=== PATIENT | female | born 1980 | race Caucasian/White ===

== ENCOUNTER 2024-09-10 22:10 | Emergency (ER) | payer OTHER, SELFPAY ==
--- OUTSIDE RECORDS SUMMARY | 2024-09-10 22:13 | XMS_ITS | Encounter Summary ---
Author Organization [facility] Address [address] [place] [address]. [place] [address] Care Team Providers Care Capacity Planning Engineer Name Role Phone Lawanda Frey MD Primary Care Provider [phone] Kaylee Carrasco LABORER BITUMINOUS PAVING AUTO ELECTRICIAN Primary Care Provi juma No Ref-Primary, Physician Primary Care Provider Sara Funk LABORER BITUMINOUS PAVING AUTO ELECTRICIAN Unavailable Sara Funk LABORER BITUMINOUS PAVING AUTO ELECTRICIAN Unavailable Ivonne Berger MD Unavailable [phone] Josh Tenorio MD Unavailable [phone] Gela Samuel MD Unavailable Cris Grace MD Unavailable Cris Grace MD Primary Care Provider [phone] Encounter Details Date Type Department Care Team (Late st Contact Info) Description 07/28/2007 [facility] [address] [place] [address] Haseeb Watkins MD NO INFO AVAILABLE 03/04/2022 DELIVERY PATHWAY (Primary Dx) Social History Tobacco Use Types Packs/Day Years Used Date Smoking Tobacco: Former Cigarettes 0.1 1.5 0 03/14/2023 - 04/21/2011 Smokeless Tobacco: Never Comments:4-5 cigarettes per day Alcohol Use Standard Drinks/Week Comments Yes 0 (1 standard drink = 0.6 oz pur e alcohol) 5 per week maybe Comments No Sex and Gender Information Value Date Recorded Sex Assigned at Female 11/16/2022 4:36 PM CDT 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 Gender Identity Female 11/16/2022 4:36 PM CDT Sexual Orientation Straight 11/16/2022 4: 36 PM CDT documented as of this encounter Plan of Treatment Not on file documented as of this encounter Visit Diagnoses Diagnosis DELIVERY PATHWAY- Primary documented in this encounter Additional Health Concerns Infection Onset Date Last Indicated Resolved Time Rule Out C-difficile 07/19/2022 07/28/2022 023 11:41 PM CDT documented as of this encounter Care Teams Capacity Planning Engineer Relationship Specialty Start Date End Date Lawanda Frey MD PCP - General 08/25/06 09/08/14 Kaylee Carrasco APRN AUTO ELECTRICIAN PCP - General Nurse Practitioner - Family 09/09/14 11/02/15 No Ref-Primary, Physician PCP - General 08/31/17 06/13/22 Sara Funk APRN AUTO ELECTRICIAN [id number] [place] [address] PCP - Assigned PCP 07/20/15 05/06/18 [place] [id number] [place] [address] PCP - General Family Medicine 06/14/22 Sara Funk APRN AUTO ELECTRICIAN [address] [place] [address] Assigned PCP 07/20/15 05/06/18 [place] [address] [place] [address] Assigned PCP 10/22/18 07/25/21 Josh Tenorio MD [address] [address] Assigned OBGYN Provider 01/04/20 Gela Samuel MD [address] [place] [address] Assigned PCP 07/26/21 01/15/22 [place] [id number] [place] [address] Assigned PCP 01/16/22 documented as of this encounter
--- OUTSIDE RECORDS SUMMARY | 2024-09-10 22:13 | XMS_ITS | Encounter Summary ---
Author Organization [facility] Address [address] [place] [address]. [place] [address] Care Team Providers Care Marketing Manager Health Communications Name Role Phone Lawanda Frey MD Primary Care Provider [phone] Kaylee Carrasco PEDIATRIC IMMUNOLOGIST AUTO CLUTCH REBUILDER Primary Care Provi juma No Ref-Primary, Physician Primary Care Provider Sara Funk PEDIATRIC IMMUNOLOGIST AUTO CLUTCH REBUILDER Unavailable Sara Funk PEDIATRIC IMMUNOLOGIST AUTO CLUTCH REBUILDER Unavailable Ivonne Berger MD Unavailable [phone] Josh Tenorio MD Unavailable [phone] Gela Samuel MD Unavailable Cris Grace MD Unavailable Cris Grace MD Primary Care Provider [phone] Encounter Details Date Type Department Care Team (Late st Contact Info) Description 03/29/2011 [facility] [id number] [place] [id number] Lawanda Frey MD [address] [place] [id number] Social History Tobacco Use Types Packs/Day Years Used Date Smoking Tobacco: Every Day Cigarettes Last attempted to quit: 03/29/2007 Smokeless Tobacco: Never Comments:4-5 cigarettes per day Alcohol Use Standard Drinks/Week Comments Yes 0 (1 standard drink = 0.6 oz pur e alcohol) effective 12/12/06, socially Comments No Sex and Gender Information Value Date Recorded Sex Assigned at Female 11/16/2022 4:36 PM CDT 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 Gender Identity Female 11/16/2022 4:36 PM CDT Sexual Orientation Straight 11/16/2022 4: 36 PM CDT documented as of this encounter Plan of Treatment Not on file documented as of this encounter Visit Diagnoses Not on filedocumented in this encounter Additional Health Concerns Infection Onset Date Last Indicated Resolved Time Rule Out C-difficile 07/19/2022 07/28/2022 023 11:41 PM CDT documented as of this encounter Care Teams Marketing Manager Health Communications Relationship Specialty Start Date End Date Lawanda Frey MD PCP - General 08/25/06 09/08/14 Kaylee Carrasco APRN AUTO CLUTCH REBUILDER PCP - General Nurse Practitioner - Family 09/09/14 11/02/15 No Ref-Primary, Physician PCP - General 08/31/17 06/13/22 Sara Funk APRN AUTO CLUTCH REBUILDER [address] [place] [address] PCP - Assigned PCP 07/20/15 05/06/18 [place] [address] [address] [address] PCP - General Family Medicine 06/14/22 Sara Funk APRN AUTO CLUTCH REBUILDER [address] [place] [address] Assigned PCP 07/20/15 05/06/18 [place] [address] [place] [address] Assigned PCP 10/22/18 07/25/21 Josh Tenorio MD [address] [address] Assigned OBGYN Provider 01/04/20 Gela Samuel MD [address] [place] [address] Assigned PCP 07/26/21 01/15/22 [place] [address] [place] [address] Assigned PCP 01/16/22 documented as of this encounter
--- OUTSIDE RECORDS SUMMARY | 2024-09-10 22:13 | XMS_ITS | Clinical Summary ---
Author Organization [place] Address [address] [facility] [place] [address] Care Team Providers Care Supervisor [employer] Name Role Phone Cris Grace MD Unavailable Cris Grace MD Primary Care Provider [phone] Allergies Active Allergy Reactions Criticality Noted Date Comments Cats 03/28/2006 Cat gut. Used in stitches. Medications Multiple Vitamin (MULTIVITAMIN) per tablet Take 1 tablet by mouth daily. 0 Active ibuprofen (ADVIL,MOTRIN) 200 MG tablet Take 3 tablets by mouth every 8 hours as needed for pain. 1 tablet 0 2 Active progesterone (PROMETRIUM) 100 MG capsule Take 100 mg by mouth daily 2 Active fluconazole (DIFLUCAN) 150 MG tabletIndication s:Tinea versicolor Take 2 tablets (300 mg) by mouth every 14 days - for two doses 4 tablet 1 3 Active ketoconazole (NIZORAL) 2 % external shampooIndicatio ns:Tinea versicolor Apply topically daily as needed for itching or irritation 120 mL 1 3 Active triamcinolone (KENALOG) 0.1 % external ointmentIndicati ons:Dermatitis APPLY TO AFFECTED AREA TWICE A DAY 80 g 1 5 Active clindamycin (CLEOCIN T) 1 % SWABIndications: Rosacea Apply 1 applicator topically 2 times daily. 180 each 2 5 Active fluticasone (FLONASE) 50 MCG/ACT nasal sprayIndications :Seasonal allergic rhinitis due to pollen [place] 1 spray into both nostrils daily. 16 g 11 5 Active fluconazole (DIFLUCAN) 150 MG tablet Take 2 tablets (300 mg) by mouth every 14 days. - for two doses 4 tablet 5 Active spironolactone (ALDACTONE) 50 MG tabletIndication s:Acne, unspecified acne type Take 1 tablet (50 mg) by mouth daily. 90 tablet 3 5 Active Active Problems Problem Noted Date Diagnosed Date CARDIOVASCULAR SCREENING; LDL GOAL LESS THAN 160 01/11/2010 Acne 11/06/2009 Overview (11/06/2009): Seeing dr. fierro Resolved Problems Problem Noted Date Diagnosed Date Resolved Date Heavy periods 11/10/2018 11/10/2018 High risk HPV infection 11/03/201510/14 Dysplasia of cervix, low grade (MIGUEL 1) 09/05/2015 11/10/2018 Overview (12/28/2022): 09/05/15: LSIL/ +HR HPV (not 16 or 18). Plan Barclay 10/27/15 Barclay= MIGUEL 1. Plan co-test 6 months, due 04/201608/25/16 NIL pap/+ HR HPV (not 16 or 18). Plan: colposcopy 10/26/16 Barclay--mild atypia. Plan: co-test in 1 year. 08/31/17 NIL pap, neg HR HPV. Plan 3 year cotest 01/11/22 NIL, +HR HPV, not 16/18. Plan 1 yr co-test 12/21/22 NIL, Neg HPV. Plan 3 yr co-test Papanicolaou smear of cervix with low grade squamous intraepithelial lesion (LGSIL) 09/05/2015 11/10/2018 Overview (11/10/2018): + HR HPV other Cervical high risk HPV ([place] n papillomavirus) test positive 09/05/2015 11/10/2018 Overview (11/10/2018): (Not 16 or 18) Weight loss, non-intentional 06/24/2010 06/14/2022 Supervision of other high-risk 04/06/2007 09/19/2007 Overview (12/13/2014): Elevated HCG on quad screen; results d/w Dr. Newman. Recommend monthly growth scans, biweekly BP, urine dipstick, and weight from 20-30 wks ega, weekly follow-ups with BPP from 30 wks ega, and delivery at approximaely 39 wks or as clinically indicated. Suggestion of baseline labs also made. Quad result and recommendation discussed with patient who agrees with management plan. Problem list name updated by automated process. Provider to review Supervision of normal first 03/29/2007 05/03/2007 Personal history of contrace ption, presenting hazards to health 09/19/2007 Tobacco use disorder 014 Immunizations Immunization Administration Dates Next Due Influenza (IIV3) PF 12/26/2012,01/05/2010 [place] Tuberculin Skin Test 06/13/2007 TD,PF 7+ (Tenivac) 08/12/2006 TDAP Vaccine (Adacel) 10/26/2016,08/25/200608/12 Family History Medical History Relation Comments Family History Negative Brother 2 1 Heart Disease Father heart attack onc e-at age of 52-may be mild heart attacks prior to that Cardiovascular Maternal Grandfather heart attac k Cancer Maternal Grandmother ovarian dx approx age 70 Other Cancer Maternal Grandmother Ovarian can cer Ovarian Cancer Maternal Grandmother Family History Negative Mother Cancer Paternal Grandfather prostate ca -recently diagnosed; history of pulmonary embolism Cancer Paternal Grandmother ovarian (po ssible) and heart attack age 76 at dx Cerebrovascular Disease Paternal Grandmother Other Cancer Paternal Grandmother Cervical ca ncer Ovarian Cancer Paternal Grandmother Breast Cancer No family hx of Cancer - colorectal No family hx of Colon Cancer No family hx of Relation Status Comments Brother 1 Alive Brother 2 Father Alive Maternal Grandfather Maternal Grandmother Mother Alive Paternal Grandfather Alive Paternal Grandmother Social History Tobacco Use Types Packs/Day Years Used Date Smoking Tobacco: Former Cigarettes 0.1 1.5 0 03/14/2023 - 04/21/2011 Smokeless Tobacco: Never Tobacco Cessation:Counseling Given: Not Answered Comments:4-5 cigarettes per day Alcohol Use Standard Drinks/Week Comments Yes 0 (1 standard drink = 0.6 oz pur e alcohol) 5 per week maybe Social Connection and Isolation Panel [NHANES] A nswer Date Recorded Frequency of Communication with Friends and Fami ly Not on file 05/04/2024 How often do you get togethe r with friends or relatives? Three times a week 05/04/2024 Attends [employer] Services Not on file 05/04 Active Member of Clubs or Organizations Not on f ile 05/04/2024 Attends Club or Organization Meetings Not on jaycob e 05/04/2024 Marital Status Not on file 05/04/2024 AUDIT-C Answer Date Recorded Q1: How often do you have a drink containing alc ohol? 2-3 times a week 01/11/2022 Q2: How many drinks containi ng alcohol do you have on a typical day when you are drinking? 1 or 2 01/11/2022 Q3: How often do you have si x or more drinks on one occasion? Never 01/11/2022 PHQ-2 Answer Date Recorded PHQ-2 Score 1 05/04/2024 [facility] - Occupational Stress Questionnaire Answer Date Recorded Do you feel stress - tense, restless, nervous, or anxious, or unable to sleep at night because your mind is troubled all the time - these days? To some extent 05/04/2024 Exercise Vital Sign Answer Date Recorde d On average, how many days pe r week do you engage in moderate to strenuous exercise (like a brisk walk)? 4 days 05/04/2024 On average, how many minutes do you engage in exercise at this level? 40 min 05/04/2024 Adolescent Education Answer Date Record ed Getting School Help Needed Not on file 12/13 Food Insecurity Answer Date Recorded Within the past 12 months, d id you worry that your food would run out before you got money to buy more? No 05/04/2024 Within the past 12 months, d id the food you bought just not last and you didn t have money to get more? No 05/04/2024 Housing Stability Answer Date Recorded Do you have housing? (Debbie lerma is defined as stable permanent housing and does not include staying outside in a car, in a tent, in an abandoned building, in an overnight halfway, or couch-surfing.) Yes 05/04/2024 Are you worried about losing your housing? No 05/04/2024 Financial Resource Strain Answer Date R ecorded Within the past 12 months, h ave you or your family members you live with been unable to get utilities (heat, electricity) when it was really needed? No 05/04/2024 Transportation Needs Answer Date Record ed Within the past 12 months, h as lack of transportation kept you from medical appointments, getting your medicines, non-medical meetings or appointments, work, or from getting things that you need? No 05/04/2024 Interpersonal Safety Answer Date Record ed Do you feel physically and e motionally safe where you currently live? Yes 05/04/2024 Within the past 12 months, h ave you been hit, slapped, kicked or otherwise physically hurt by someone? No 05/04/2024 Within the past 12 months, h ave you been humiliated or emotionally abused in other ways by your partner or ex-partner? No 05/04/2024 Comments No Sex and Gender Information Value Date Recorded Sex Assigned at Female 11/16/2022 4:36 PM CDT Legal Sex Female 2:58 AM SPECIAL EDUCATION PARAEDUCATOR Gender Identity Female 11/16/2022 4:36 PM CDT Sexual Orientation Straight 11/16/2022 4: 36 PM CDT Last Filed Vital Signs Vital Sign Reading Time Taken Comments Blood Pressure 94/64 05/04/2024 7:35 AM SPECIAL EDUCATION PARAEDUCATOR Pulse 82 05/04/2024 7:35 AM SPECIAL EDUCATION PARAEDUCATOR Temperature 36.9 C (98.5 F) 05/04/2024 7:35 AM SPECIAL EDUCATION PARAEDUCATOR Respiratory Rate 20 05/04/2024 7:35 AM SPECIAL EDUCATION PARAEDUCATOR Oxygen Saturation 98% 05/04/2024 7:35 AM SPECIAL EDUCATION PARAEDUCATOR Inhaled Oxygen Concentration - - Weight 62.2 kg (137 lb 3.2 oz) 05/04/2024 7:35 A M SPECIAL EDUCATION PARAEDUCATOR Height 163.2 cm (5' 4.25) 05/04/2024 7:35 AM CS T Body Mass Index 23.37 05/04/2024 7:35 AM SPECIAL EDUCATION PARAEDUCATOR Plan of Treatment Health Maintenance Due Date Last Done Comments CT COLONOGRAPHY 1980 FLEX SIG 1980 sDNA (Cologuard) 1980 HEPATITIS B VACCINE (1 of 3 - 19+ 3-dose series) 1998 FIT 06/15/2023 06/14/2022 COVID-19 VACCINE ( season) 2023 ANNUAL REVIEW OF HM ORDERS 12/22/2023 12/21/2022, INFLUENZA VACCINE (Season Ended) 2024 12/26/2012, 01/05/2010 YEARLY PREVENTIVE VISIT 05/04/2025 05/04/19, 12/21/2022, 01/11/2022, Additional history exists HPV FOLLOW-UP 12/21/2025 12/21/2022, 12/14, 08/31/2017, Additional history exists PAP FOLLOW-UP 12/21/2025 12/21/2022, 12/14, 08/31/2017, Additional history exists MAMMO SCREENING 05/28/2026 05/28/2024, 11/14, 11/15/2018 DTAP/TDAP/TD VACCINE (3 - Td or Tdap) 10/26/2026 10/26/2016, 08/25/2006, 08/12/2006 DIABETES SCREENING 05/10/2027 05/10/2024, 1 , 01/11/2022, Additional history exists ZOSTER VACCINE (1 of 2) 2029 ADVANCE CARE PLANNING 05/04/2029 05/04/2024, 022 LIPID 05/10/2029 05/10/2024, 12/12, 01/11/2022, Additional history exists COLONOSCOPY 08/02/2032 08/02/2022, 08/02/2022 COLORECTAL CANCER SCREENING 08/02/2032 HIV SCREENING Completed 01/24/2007 HEPATITIS C SCREENING Completed 01/01/2010 PAP Discontinued 12/21/2022, 12/14, 08/31/2017, Additional history exists PHQ-2 (once per calendar year) Completed 05/04/2024, 06/14/2022, 01/11/2022, Additional history exists HPV VACCINE Aged Out No longer eligi ble based on patient's age to complete this topic MENINGITIS VACCINE Aged Out No longer eligible based on patient's age to complete this topic PNEUMOCOCCAL VACCINE: PEDIATRICS (0 to 5 YEARS) AND AT-RISK PATIENTS (6 to 49 YEARS) Aged Out No longer eligible based on patient's age to complete this topic Procedures Procedure Name Priority Date/Time Associated Diagnosis Comments MA SCREENING WITH IMPLANTS BILATERAL W/ VICENTE Routine 05/28/2024 4:31 PM CDT Encounter for screening mammogram for breast cancer BASIC METABOLIC PANEL Routine 05/10/2024 8:27 AM SPECIAL EDUCATION PARAEDUCATOR Screening for metabolic disorder LIPID REFLEX TO DIRECT LDL PANEL Routine 05/10/2024 8:27 AM SPECIAL EDUCATION PARAEDUCATOR Lipid screening HPV HIGH RISK TYPES DNA CERVICAL Routine 12/21/2022 8:15 AM CDT Cervical cancer screening GYNECOLOGIC CYTOLOGY Routine 12/21/2022 8:15 AM CDT Cervical cancer screening COLONOSCOPY Routine 08/02/2022 9:05 AM CDT FECAL COLORECTAL CANCER SCREEN FIT Routine 06/14/2022 12:00 PM CDT Blood in stool HEPATITIS C ANTIBODY Routine 01/01/2010 12:28 PM CDT Prothrombin gene mutation HCL HIV 1 & 2 ANTIBODY Routine 01/24/2007 11:44 AM SPECIAL EDUCATION PARAEDUCATOR Supervis Normal 1st Preg from Last 3 Months or Most Recently Relevant to Health Maintenance Results * MA Screen with Implants Bilateral w/Vicente (05/28/2024 4:31 PM CDT) Anatomical Region Laterality Modality Breast Bilateral Mammography Impressions 05/29/2024 8:47 AM CDT IMPRESSION: ACR BI-RADS Category 2: Benign BREAST CANCER SCREENING RECOMMENDATION: Routine yearly mammography beginning at age 40 or as discussed with your provider. The results and recommendations of this examination will be communicated to the patient. Anushka Thompson MD Narrative 05/29/2024 8:47 AM CDT BILATERAL FULL FIELD DIGITAL SCREENING MAMMOGRAM WITH TOMOSYNTHESIS Performed on: 05/28/24 Compared to: 12/11/2021, 11/15/2018, and 11/15/2018 Technique: This study was evaluated with the assistance of Computer-Aided Detection. Breast Tomosynthesis was used in interpretation. Findings: There are scattered areas of fibroglandular density. There are breast augmentation changes. There is no radiographic evidence of malignancy. us Cris Grace MD IMG MAMMOGRAPHY ORDERABLES Final Result * (ABNORMAL) Lipid panel reflex to direct LDL Fasting (05/10/2024 8:27 AM SPECIAL EDUCATION PARAEDUCATOR) Cholesterol 214(H) <200 mg/dL 05/10/2024 4:54 PM SPECIAL EDUCATION PARAEDUCATOR [facility] Triglycerides 62 <150 mg/dL 05/10/2024 4:54 PM SPECIAL EDUCATION PARAEDUCATOR [facility] Direct Measure HDL 82 >=50 mg/dL 05/10/2024 4:54 PM SPECIAL EDUCATION PARAEDUCATOR [facility] LDL Cholesterol Calculated 120(H) <100 mg/dL 05/10/2024 4:54 PM SPECIAL EDUCATION PARAEDUCATOR [facility] Non HDL Cholesterol 132(H) <130 mg/dL 05/10/2024 4:54 PM SPECIAL EDUCATION PARAEDUCATOR [facility] Patient Fasting > 8hrs? Yes 05/10/2024 4:54 PM SPECIAL EDUCATION PARAEDUCATOR [facility] Blood BLOOD SPECIMEN / Unknown Venipuncture / Unknown 05/10/2024 8:27 AM SPECIAL EDUCATION PARAEDUCATOR 05/10/2024 8:27 AM SPECIAL EDUCATION PARAEDUCATOR Narrative [facility] - 05/10/2024 4:54 PM SPECIAL EDUCATION PARAEDUCATOR Cholesterol Desirable: < 200 mg/dL Borderline High: 200 - 239 mg/dL High: >= 240 mg/dL Triglycerides Normal: < 150 mg/dL Borderline High: 150 - 199 mg/dL High: 200-499 mg/dL Very High: >= 500 mg/dL Direct Measure HDL Female: >= 50 mg/dL Male: >= 40 mg/dL LDL Cholesterol Desirable: < 100 mg/dL Above Desirable: 100 - 129 mg/dL Borderline High: 130 - 159 mg/dL High: 160 - 189 mg/dL Very High: >= 190 mg/dL Non HDL Cholesterol Desirable: < 130 mg/dL Above Desirable: 130 - 159 mg/dL Borderline High: 160 - 189 mg/dL High: 190 - 219 mg/dL Very High: >= 220 mg/dL Cris Grace MD LAB - BLOOD ORDERABLES Final Res ult [facility] [address] [facility], [address] [place] [address] * Basic metabolic panel (Ca, Cl, CO2, Creat, Gluc, K, Na, BUN) (05/10/2024 8:27 AM SPECIAL EDUCATION PARAEDUCATOR) Sodium 142 135 - 145 mmol/L 05/10/2024 4:54 PM SPECIAL EDUCATION PARAEDUCATOR [facility] Potassium 4.5 3.4 - 5.3 mmol/L 05/10/2024 4:54 PM SPECIAL EDUCATION PARAEDUCATOR [facility] Chloride 104 98 - 107 mmol/L 05/10/2024 4:54 PM SPECIAL EDUCATION PARAEDUCATOR [facility] Carbon Dioxide (CO2) 27 22 - 29 mmol/L 05/10/2024 4:54 PM SPECIAL EDUCATION PARAEDUCATOR [facility] Anion Gap 11 7 - 15 mmol/L 05/10/2024 4:54 PM SPECIAL EDUCATION PARAEDUCATOR [facility] Urea Nitrogen 11.6 6.0 - 20.0 mg/dL 05/10/2024 4:54 PM SPECIAL EDUCATION PARAEDUCATOR [facility] Creatinine 0.74 0.51 - 0.95 mg/dL 05/10/2024 4:54 PM SPECIAL EDUCATION PARAEDUCATOR [facility] GFR Estimate >90 >60 mL/min/1.7 3m2 05/10/2024 4:54 PM SPECIAL EDUCATION PARAEDUCATOR [facility] Comment:eGFR calculated us2020 CKD-EPI equation. Calcium 10.2 8.8 - 10.4 mg/dL 05/10/2024 4:54 PM SPECIAL EDUCATION PARAEDUCATOR [facility] Glucose 88 70 - 99 mg/dL 05/10/2024 4:54 PM SPECIAL EDUCATION PARAEDUCATOR [facility] Patient Fasting > 8hrs? Yes 05/10/2024 4:54 PM SPECIAL EDUCATION PARAEDUCATOR [facility] Blood BLOOD SPECIMEN / Unknown Venipuncture / Unknown 05/10/2024 8:27 AM SPECIAL EDUCATION PARAEDUCATOR 05/10/2024 8:27 AM SPECIAL EDUCATION PARAEDUCATOR us Cris Grace MD LAB - BLOOD ORDERABLES Final Res ult [facility] [address] [facility] [address] [facility] [place] [address], [facility] * Pap Screen with HPV - recommended age 30 - 65 years (12/21/2022 8:15 AM CDT) Interpretation Negative for Intraepithelial Lesion or Malignancy (NILM) 12/23/2022 9:29 AM CDT [facility] at 0929 CDT Comment Papanicolaou Test Limitations: Cervical cytology is a screening test with limited sensitivity, and regular screening is critical for cancer prevention. Pap tests are primarily effective for the diagnosis/prevent ion of squamous cell carcinoma, not adenocarcinoma or other cancers. 12/23/2022 9:29 AM CDT [facility] Specimen Adequacy Satisfactory for evaluation, endocervical/caal sformation zone component absent 12/23/2022 9:29 AM CDT [facility] Clinical Information none 12/23/2022 9:29 AM CDT [facility] Reflex Testing Yes regardless of result 12/23/2022 9:29 AM CDT [facility] Previous Abnormal? No 12/23/2022 9:29 AM CDT [facility] Performing Labs The technical component of this testing was completed at [facility] 12/23/2022 9:29 AM CDT [facility] Brushing CERVIX UTERI STRUCTURE / Unknown Non-blood Collection / Unknown 12/21/2022 8:15 AM CDT 12/21/2022 8:38 AM CDT us Cris Grace MD LAB - BEAKER AP Final Result [facility] [address] [facility] [address] [facility] [address] [place] [address], [facility] [phone] * HPV High Risk Types DNA Cervical (12/21/2022 8:15 AM CDT) Other HR HPV Negative Negative 12/27/2022 3:07 PM CDT [facility] HPV16 DNA Negative Negative 12/27/2022 3:07 PM CDT [facility] HPV18 DNA Negative Negative 12/27/2022 3:07 PM CDT [facility] FINAL DIAGNOSIS This patient's sample is negative for HPV DNA. This test was developed and its performance characteristics determined by the [facility], [facility]. It has not been cleared or approved by the FDA. The laboratory is regulated under CLIA as qualified to perform high-complexity testing. This test is used for clinical purposes. It should not be regarded as investigational or for research. METHODOLOGY: The Arun Swapnil 4800 system uses automated extraction, simultaneous amplification of HPV (L1 region) and beta-globin, followed by real time detection of fluorescent labeled HPV and beta globin using specific oligonucleotide probes. The test specifically identifies types HPV 16 DNA and HPV 18 DNA while concurrently detecting the rest of the high risk types (31, 33, 35, 39, 45, 51, 52, 56, 58, 59, 66 or 68). COMMENTS: This test is not intended for use as a screening device for woman under age 30 with normal cervical cytology. Results should be correlated with cytologic and histologic findings. Close clinical followup is recommended. 12/27/2022 3:07 PM CDT [facility] Brushing CERVIX UTERI STRUCTURE / Unknown Non-blood Collection / Unknown 12/21/2022 8:15 AM CDT 12/24/2022 10:43 AM CDT us Cris Grace MD LAB - BLOOD ORDERABLES Final Res ult [facility] [address], [address] [place] [address], [facility] [phone] * COLONOSCOPY (08/02/2022 9:05 AM CDT) COLONOSCOPY [facility] Patient Name: Deyanira Lopez Procedure Date: 08/02/2022 9:05 AM Date of : 1980 Admit Type: Outpatient Age: 42 Gender: Female Attending MD: ROBERT YOST MD, Total Sedation Time: 15 minutes of continuous bedside 1:1. IT: 3m, WDT: 8m Instrument Name: 250 - Pediatric Colonoscope Procedure: Colonoscopy Indications: Rectal bleeding Providers: ROBERT YOST MD (Doctor) Referring MD: SENAIT VELAZQUEZ NP (Referring MD) Medicines: Fentanyl 100 micrograms IV, Midazolam 2 mg IV Complications: No immediate complications. Procedure: Pre-Anesthesia Assessment: - Prior to the procedure, a History and Physical was performed, and patient medications and allergies were reviewed. The patient is competent. The risks and benefits of the procedure and the sedation options and risks were discussed with the patient. All questions were answered and informed consent was obtained. Patient identification and proposed procedure were verified by the physician and the nurse in the endoscopy suite. Mental Status Examination: alert and oriented. Airway Examination: normal oropharyngeal airway and neck mobility. Respiratory Examination: clear to auscultation. CV Examination: normal. Prophylactic Antibiotics: The patient does not require prophylactic antibiotics. Prior Anticoagulants: The patient has taken no anticoagulant or antiplatelet agents. ASA Grade Assessment: II - A patient with mild systemic disease. After reviewing the risks and benefits, the patient was deemed in satisfactory condition to undergo the procedure. The anesthesia plan was to use moderate sedation / analgesia (conscious sedation). Immediately prior to administration of medications, the patient was re-assessed for adequacy to receive sedatives. The heart rate, respiratory rate, oxygen saturations, blood pressure, adequacy of pulmonary ventilation, and response to care were monitored throughout the procedure. The physical status of the patient was re-assessed after the procedure. After obtaining informed consent, the colonoscope was passed under direct vision. Throughout the procedure, the patient's blood pressure, pulse, and oxygen saturations were monitored continuously. The Olympus Pediatric Colonoscope, Model # [id number], [employer] #250, SN# [id number] was introduced through the anus and advanced to 4 cm into the ileum. The colonoscopy was performed with ease. The patient tolerated the procedure well. The quality of the bowel preparation was good. The terminal ileum, ileocecal valve, appendiceal orifice, and rectum were photographed. Findings: The perianal and digital rectal examinations were normal. Pertinent negatives include normal sphincter tone and no palpable rectal lesions. The terminal ileum appeared normal. Normal mucosa was found in the entire colon. Biopsies for histology were taken with a cold forceps from the right colon and left colon for evaluation of microscopic colitis. Estimated blood loss was minimal. The retroflexed view of the distal rectum and anal verge was normal and showed no anal or rectal abnormalities. Impression: - The examined portion of the ileum was normal. - Normal mucosa in the entire examined colon. Biopsied. - The distal rectum and anal verge are normal on retroflexion view. Recommendation: - Repeat colonoscopy in 10 years for screening purposes. Procedure Code(s): --- Professional --- 24057, Colonoscopy, flexible; with biopsy, single or multiple Diagnosis Code(s): --- Professional --- K62.5, Hemorrhage of anus and rectum CPT copyright 2020 [employer]. All rights reserved. The codes documented in this report are preliminary and upon apprentice cook review may be revised to meet current compliance requirements. ____ ROBERT YOST MD 08/02/2022 9:34:45 AM I was physically present for the entire viewing portion of the exam. ROBERT YOST MD Number of Addenda: 0 Note Initiated On: 08/02/2022 9:05 AM Procedure Date: 08/02/2022 9:05:24 AM Scope Withdrawal Time: 0 hours 7 minutes 30 seconds Total Procedure Duration: 0 hours 10 minutes 26 seconds Estimated Blood Loss: Scope In: 9:17:56 AM Scope Out: 9:28:22 AM RADIOLOGY RESULTS 08/02/2022 9:05 AM CDT us Senait Velazquez APRN BROACH OPERATOR PROCEDURES Fin al Result RADIOLOGY RESULTS * (ABNORMAL) Fecal colorectal cancer screen (FIT) (06/14/2022 12:00 PM CDT) Occult Blood Screen FIT Positive(A ) Negative 06/14/2022 5:00 PM CDT [facility] Stool RECTAL CONTENTS / Unknown Non-blood Collection / Unknown 06/14/2022 12:00 PM CDT 06/14/2022 1:31 PM CDT us Senait Velazquez APRN, CNP LAB - STOOLS ORDERA BLES Final Result LABORATORY [facility] [address] [place] [address], [address] [address], [facility] [phone] * Hepatitis C antibody (01/01/2010 12:28 PM CDT) Hepatitis C Antibody Negative NEG [facility] Blood specimen (specimen) 01/01/2010 12:28 PM CDT 01/01/2010 12:33 PM CDT Marleni Duke MD LAB - BLOOD ORDERABLES F inal Result [facility] [address] [place] [address] * HIV 1 & 2, SCREEN (01/24/2007 11:44 AM SPECIAL EDUCATION PARAEDUCATOR) HIV 1&2 Antibody Negative NEG [facility] 01/24/2007 11:4 4 AM SPECIAL EDUCATION PARAEDUCATOR 01/24/2007 11:49 AM SPECIAL EDUCATION PARAEDUCATOR Marleni Duke MD LABORATORY Final Re sult [facility] [address] [place] [address] from Last 3 Months or Most Recently Relevant to Health Maintenance Insurance [facility] Care Teams Supervisor [employer] Relationship Specialty [place] [address] [place] [address] PCP - General Family Medicine 06/14/22 [place] [address] [place] [address] Assigned PCP 01/16/22
--- OUTSIDE RECORDS SUMMARY | 2024-09-10 22:13 | XMS_ITS | Encounter Summary ---
Author Organization [facility] Address [address] [place] [address]. [place] [address] Care Team Providers Care Recorder Helper Seismograph Name Role Phone Lawanda Frey MD Primary Care Provider [phone] Kaylee Carrasco HAND BUTTON SPLITTER RN POST PARTUM Primary Care Provi juma No Ref-Primary, Physician Primary Care Provider Sara Funk HAND BUTTON SPLITTER RN POST PARTUM Unavailable Sara Funk HAND BUTTON SPLITTER RN POST PARTUM Unavailable Ivonne Berger MD Unavailable [phone] Josh Tenorio MD Unavailable [phone] Gela Samuel MD Unavailable Cris Grace MD Unavailable Cris Grace MD Primary Care Provider [phone] Encounter Details Date Type Department Care Team (Late st Contact Info) Description 02/17/2011 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 Gender Identity Female 11/16/2022 4:36 PM CDT [...] documented as of this encounter Care Teams Recorder Helper Seismograph Relationship Specialty Start Date End Date Lawanda Frey MD PCP - General 08/25/06 09/08/14 Kaylee Carrasco APRN RN POST PARTUM PCP - General Nurse Practitioner - Family 09/09/14 11/02/15 No Ref-Primary, Physician PCP - General 08/31/17 06/13/22 Sara Funk APRN RN POST PARTUM [address] [place] [address] PCP - Assigned PCP 07/20/15 05/06/18 [place] [address] [address] [address] PCP - General Family Medicine 06/14/22 Sara Funk APRN RN POST PARTUM [address] [place] [address] Assigned PCP 07/20/15 05/06/18 [place] [address] [place] [address] Assigned PCP 10/22/18 07/25/21 Josh Tenorio MD [address] [address] Assigned OBGYN Provider 01/04/20 Gela Samuel MD [address] [place] [address] Assigned PCP 07/26/21 01/15/22 [place] [address] [place] [address] Assigned PCP 01/16/22 documented as of this encounter
--- OUTSIDE RECORDS SUMMARY | 2024-09-10 22:13 | XMS_ITS | Encounter Summary ---
Author Organization [facility] Address [address] [place] [address]. [place] [address] Care Team Providers Care Checkering Machine Adjuster Name Role Phone Lawanda Frey MD Primary Care Provider [phone] Kaylee Carrasco CLAIM APPROVER WEB PRODUCTION ARTIST Primary Care Provi juma No Ref-Primary, Physician Primary Care Provider Sara Funk CLAIM APPROVER WEB PRODUCTION ARTIST Unavailable Sara Funk CLAIM APPROVER WEB PRODUCTION ARTIST Unavailable Ivonne Berger MD Unavailable [phone] Josh Tenorio MD Unavailable [phone] Gela Samuel MD Unavailable Cris Grace MD Unavailable Cris Grace MD Primary Care Provider [phone] Encounter Details Date Type Department Care Team (Late st Contact Info) Description 10/05/2010 [facility] Medical Advice [facility] [address] [place] [address] [phone] Lawanda Frey MD [address] [place] [address] [phone] Social History Tobacco Use Types Packs/Day Years [...] PM CDT 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 Gender Identity Female 11/16/2022 4:36 PM CDT [...] documented as of this encounter Care Teams Checkering Machine Adjuster Relationship Specialty Start Date End Date Lawanda Frey MD PCP - General 08/25/06 09/08/14 Kaylee Carrasco APRN WEB PRODUCTION ARTIST PCP - General Nurse Practitioner - Family 09/09/14 11/02/15 No Ref-Primary, Physician PCP - General 08/31/17 06/13/22 Sara Funk APRN WEB PRODUCTION ARTIST [address] [place] [address] PCP - Assigned PCP 07/20/15 05/06/18 [place] [address] [address] [address] PCP - General Family Medicine 06/14/22 Sara Funk APRN WEB PRODUCTION ARTIST [address] [place] [address] Assigned PCP 07/20/15 05/06/18 [place] [address] [place] [address] Assigned PCP 10/22/18 07/25/21 Josh Tenorio MD [address] [address] Assigned OBGYN Provider 01/04/20 Gela Samuel MD [address] [place] [address] Assigned PCP 07/26/21 01/15/22 [place] [address] [place] [address] Assigned PCP 01/16/22 documented as of this encounter
--- OUTSIDE RECORDS SUMMARY | 2024-09-10 22:13 | XMS_ITS | Encounter Summary ---
Author Organization [facility] Address [address] [place] [address]. [place] [address] Care Team Providers Care Disposition Clerk Name Role Phone Lawanda Frey MD Primary Care Provider [phone] Kaylee Carrasco SAP FICO BUSINESS ANALYST KNUCKLE BENDER Primary Care Provi juma No Ref-Primary, Physician Primary Care Provider Sara Funk SAP FICO BUSINESS ANALYST KNUCKLE BENDER Unavailable Sara Funk SAP FICO BUSINESS ANALYST KNUCKLE BENDER Unavailable Ivonne Berger MD Unavailable [phone] Josh Tenorio MD Unavailable [phone] Gela Samuel MD Unavailable Cris Grace MD Unavailable Cris Grace MD Primary Care Provider [phone] Encounter Details Date Type Department Care Team (Late st Contact Info) Description 06/29/2010 MyC Medical Advice [facility] [id number] [place] [address] [phone] Lawanda Frey MD [address] [place] [address] [phone] Social History Tobacco Use Types Packs/Day Years Used Date Smoking Tobacco: Every Day Cigarettes Last attempted to quit: 03/29/2007 Comments:4-5 cigarettes per day Alcohol Use Standard Drinks/Week Comments Yes 0 (1 standard drink = 0.6 oz pur e alcohol) effective 12/12/06, socially Comments No Sex and Gender Information Value Date Recorded Sex Assigned at Female 11/16/2022 4:36 PM CDT Legal Sex Female 2:58 AM DIE ENGRAVER Gender Identity Female 11/16/2022 4:36 PM CDT [...] documented as of this encounter Care Teams Disposition Clerk Relationship Specialty Start Date End Date Lawanda Frey MD PCP - General 08/25/06 09/08/14 Kaylee Carrasco APRN KNUCKLE BENDER PCP - General Nurse Practitioner - Family 09/09/14 11/02/15 No Ref-Primary, Physician PCP - General 08/31/17 06/13/22 Sara Funk APRN KNUCKLE BENDER [address] [place] [address] PCP - Assigned PCP 07/20/15 05/06/18 [place] [address] [place] [address] PCP - General Family Medicine 06/14/22 Sara Funk APRN KNUCKLE BENDER [address] [place] [address] Assigned PCP 07/20/15 05/06/18 [place] [address] [place] [address] Assigned PCP 10/22/18 07/25/21 Josh Tenorio MD [address] [address] Assigned OBGYN Provider 01/04/20 Gela Samuel MD [address] [place] [address] Assigned PCP 07/26/21 01/15/22 [place] [address] [place] [address] Assigned PCP 01/16/22 documented as of this encounter
--- OUTSIDE RECORDS SUMMARY | 2024-09-10 22:13 | XMS_ITS | Encounter Summary ---
Author Organization [facility] Address [address] [place] [address]. [place] [address] Care Team Providers Care Open Hearth Helper Name Role Phone Lawanda Frey MD Primary Care Provider [phone] Kaylee Carrasco INSTALLMENT ACCOUNT CHECKER BURNER HAND Primary Care Provi juma No Ref-Primary, Physician Primary Care Provider Sara Funk INSTALLMENT ACCOUNT CHECKER BURNER HAND Unavailable Sara Funk INSTALLMENT ACCOUNT CHECKER BURNER HAND Unavailable Ivonne Berger MD Unavailable [phone] Josh Tenorio MD Unavailable [phone] Gela Samuel MD Unavailable Cris Grace MD Unavailable Cris Grace MD Primary Care Provider [phone] Encounter Details Date Type Department Care Team (Late st Contact Info) Description 08/31/2011 [facility] [id number] [place] [phone] Lawanda Frey MD [address] [place] [address] [phone] Social History Tobacco Use Types Packs/Day Years Used Date Smoking Tobacco: Former Cigarettes Q uit: 04/21/2011 Smokeless Tobacco: Never Comments:4-5 cigarettes per day Alcohol Use Standard Drinks/Week Comments Yes 0 (1 standard drink = 0.6 oz pur e alcohol) effective 12/12/06, socially Comments No Sex and Gender Information Value Date Recorded Sex Assigned at Female 11/16/2022 4:36 PM CDT Legal Sex Female 2:58 AM FIELD IDENTIFICATION SPECIALIST Gender Identity Female 11/16/2022 4:36 PM CDT [...] documented as of this encounter Care Teams Open Hearth Helper Relationship Specialty Start Date End Date Lawanda Frey MD PCP - General 08/25/06 09/08/14 Kaylee Carrasco APRN BURNER HAND PCP - General Nurse Practitioner - Family 09/09/14 11/02/15 No Ref-Primary, Physician PCP - General 08/31/17 06/13/22 Sara Funk APRN BURNER HAND [address] [place] [address] PCP - Assigned PCP 07/20/15 05/06/18 [place] [address] [place] [address] PCP - General Family Medicine 06/14/22 Sara Funk APRN BURNER HAND [address] [place] [address] Assigned PCP 07/20/15 05/06/18 [place] [address] [place] [address] Assigned PCP 10/22/18 07/25/21 Josh Tenorio MD [address] [address] Assigned OBGYN Provider 01/04/20 Gela Samuel MD [address] [place] [address] Assigned PCP 07/26/21 01/15/22 [place] [address] [place] [address] Assigned PCP 01/16/22 documented as of this encounter
--- OUTSIDE RECORDS SUMMARY | 2024-09-10 22:13 | XMS_ITS | Clinical Summary ---
Author Organization [facility] Address [address] [place] [address] Care Team Providers Care Deli Worker Name Role Phone Pcp, No Primary Care Provider Unavailabl e Allergies No known active allergies Medications spironolactone (ALDACTONE) 50 mg tablet Uses twice daily for acne 0 5 Active methylPREDNISol one (MEDROL, ALEX,) 4 mg tabletIndicatio ns:Rash Take by mouth as instructed per packaging. 1 Package 0 5 Active triamcinolone (ARISTOCORT; KENALOG) 0.1 % creamIndication s:Rash Apply topically to affected area(s) 3 times daily. 1 Tube 0 5 Active Active Problems No known active problems Family History Medical History Relation Name Comments Other Maternal Grandmother ovarian Other Paternal Grandmother uterine Relation Name Status Comments Father Alive Maternal Grandfather Maternal Grandmother Mother Alive Paternal Grandfather Paternal Grandmother Social History Tobacco Use Types Packs/Day Years Used Date Smoking Tobacco: Former Comments No Sex and Gender Information Value Date Recorded Sex Assigned at Not on file Legal Sex Female 9:38 AM CUSTOMER ADVISOR SPECIALIST Gender Identity Not on file Sexual Orientation Not on file Obstetrics History Last Filed Vital Signs Vital Sign Reading Time Taken Comments Blood Pressure 118/70 01/28/2015 10:17 AM CUSTOMER ADVISOR SPECIALIST Pulse - - Temperature 36.6 C (97.9 F) 01/28/2015 10:17 AM CUSTOMER ADVISOR SPECIALIST Respiratory Rate - - Oxygen Saturation - - Inhaled Oxygen Concentration - - Weight 68.9 kg (152 lb) 01/28/2015 10:17 AM CUSTOMER ADVISOR SPECIALIST Height - - Body Mass Index - - Plan of Treatment Health Maintenance Due Date Last Done Comments Tdap 1990 Depression screening for age 12+ 1991 HIV for age 15-65 1994 BMI (ht and wt on same day) for age 18+ 1997 Hepatitis C screening for ag e 18-79 1997 Hepatitis B series for 19+ ( 1 of 3 - 19+ 3-dose series) 1998 Tetanus booster 1999 Pap test for age 21-65 01/20/2000 COVID-19 vaccine series (2023- season) 2023 Colonoscopy through age 75 01/20/2024 Lipids for age 45-75 01/20/2024 Mammogram for age 45-75 01/20/2024 Influenza Vaccine (Season Ended) 2024 Pneumococcal series for age 6-49 Aged Out No longer eligible based on patient's age to complete this topic Care Teams Deli Worker Relationship Specialty Start Date End Date Pcp, No . PCP - General 01/28/15
[2024-09-10 22:36] VITALS: BP 128/68; PULSE 82; RESP 18; TEMP 36.7; O2SAT 99; BMI 23.2
[2024-09-10] MEDS: diphenhydrAMINE 25 MG CAPSULE PO (23:15)
[2024-09-10] MEDS: predniSONE 20 MG TABLET 60 MG PO (23:15)
[2024-09-10] MEDS: IBUPROFEN 600 MG TABLET PO (23:16)
--- NOTE | 2024-09-11 00:18 | ED.GENADULT ---
HPI - General Adult General Date Seen: 09/11/24 Chief complaint: Insect Bite Stated complaint: multiple bee stings R leg Time Seen by Provider: 09/10/24 23:10 History of Present Illness HPI narrative: 44-year-old generally healthy female presenting to the ER today with concern for bee stings on her right leg. She was mowing her lawn yesterday when she accidentally hit a nest of these that was in her grass. She was stung twice on her right leg (and possibly once on her left leg behind the left knee). Since yesterday she has developed progressive swelling, itching, burning, pain especially with the bite on her right lateral thigh and on her right posterior ankle. She says they have gotten fairly big and red area on her thigh is now about 10 x 12 cm. The area on her right ankle is smaller but more uncomfortable because it rubs against her shoe and Santyl. She is not having any other hives or rash. No throat swelling. No trouble breathing. No abdominal symptoms. No lightheadedness or dizziness. She has been trying to treat the red areas with ice packs and Zyrtec but they are burning and itching so she came to the ER tonight. Related Data Home Medications ?Medication ?Instructions ?Recorded ?Confirmed clindamycin phosphate 1 % topical 1 applic topical BID 05/23/24 09/10/24 swab spironolactone 50 mg tablet 50 mg PO DAILY 05/23/24 09/10/24 Previous Rx's ?Medication ?Instructions ?Recorded prednisone 20 mg tablet 60 mg (3 x 20 mg) PO DAILY 4 days 09/10/24 #12 tabs Allergies Allergy/AdvReac Type Severity Reaction Status Date / Time No Known Drug Allergies Allergy Verified 09/10/24 22:38 [facility] Social History How often do you have a drink containing alcohol: 2-4 times a month How many standard drinks containing alcohol do you have on a typical day: 1 or 2 How often do you have six or more drinks on one occasion: Never AUDIT-C Alcohol total score: 2 Non-prescribed substance use: denies use Exam Narrative: Exam Narrative: Constitutional: Appears well-developed and well-nourished. Alert. Conversant. Non toxic. HENT: Head: Atraumatic. Nose: Nose normal. Mouth/Throat: Oral mucosa is clear and moist. no trismus. Pharynx normal. Tonsils symmetric. No tonsillar enlargement, erythema, or exudate. Eyes: Conjunctivae normal. EOM normal. Pupils equal, round, and reactive to light. No scleral icterus. Neck: Normal range of motion. Neck supple. No tracheal deviation present. Cardiovascular: Normal rate, regular rhythm. No gallop. No friction rub. No murmur heard Pulmonary/Chest: Effort normal. No stridor. No respiratory distress. No wheezes. No rales. No rhonchi . Musculoskeletal: RUE: Normal range of motion. No tenderness. No deformity LUE: Normal range of motion. No tenderness. No deformity RLE: Normal range of motion. No edema. No tenderness. No deformity LLE: Normal range of motion. No edema. No tenderness. No deformity Neurological: Alert and oriented to person, place, and time. Normal strength. CN II-VII intact. No sensory deficit. GCS eye subscore is 4. GCS verbal subscore is 5. GCS motor subscore is 6. Normal coordination Skin: Skin is warm and dry save for the areas around her bee stings on her right leg. On her right lateral mid thigh she has a roughly 10 x 12 cm area of warm erythema. No underlying fluctuance. Consistent with a large localized reaction. No ascending lymphangitis. On her posterior ankle she has a fairly large area of edema and erythema as well surrounding the insect bite site. She has a small 1 cm area redness on her left posterolateral knee without a large localized reaction.. No rash noted. No pallor. Normal capillary refill. Psychiatric: Normal mood. Normal affect. Const: Vital Signs, click to edit/add: Vital Signs - 24 hr 09/10/24 22:36 Temperature 98.0 F Pulse Rate [Right Pulse Oximeter] 82 Respiratory Rate 18 Blood Pressure [Ri ght Upper Arm] 128/68 Pulse Oximetry 99 Oxygen Delivery Me thod Room Air Course Vital Signs Vital signs: Initial Vital Signs Temperature 98.0 F 09/10/24 22:36 Temperature Source Temporal Artery Scan 09/10/24 22:36 Pulse Rate 82 09/10/24 22:36 Respiratory Rate 18 09/10/24 22:36 Blood Pressure 128/68 09/10/24 22:36 Blood Pressure Mean 88 09/10/24 22:36 Blood Pressure Position Sitting 09/10/24 22:36 Pulse Oximetry 99 09/10/24 22:36 Oxygen Delivery Method Room Air 09/10/24 22:36 Vital Signs Temperature 98.0 F 09/10/24 22:36 Pulse Rate 82 09/10/24 22:36 Respiratory Rate 18 09/10/24 22:36 Blood Pressure 128/68 09/10/24 22:36 Pulse Oximetry 99 09/10/24 22:36 Oxygen Delivery Method Room Air 09/10/24 22:36 Temperature 98.0 F 09/10/24 22:36 Pulse Rate 82 09/10/24 22:36 Respiratory Rate 18 09/10/24 22:36 Blood Pressure 128/68 09/10/24 22:36 Pulse Oximetry 99 09/10/24 22:36 Oxygen Delivery Method Room Air 09/10/24 22:36 Medications Administered Medications: Discontinued Medications Generic Name Dose Route Start Last Admin Trade Name Johnq PRN Reason Stop Dose Admin Diphenhydramine HCl 25 mg 09/10/24 23:10 09/10/24 23:15 Diphenhydramine 25 Mg Capsule PO 09/10/24 23:11 25 mg ONCE ONE Administration Ibuprofen 600 mg 09/10/24 23:10 09/10/24 23:16 Ibuprofen 600 Mg Tablet PO 09/10/24 23:11 600 mg ONCE ONE Administration Prednisone 60 mg 09/10/24 23:10 09/10/24 23:15 Prednisone 20 Mg Tablet PO 09/10/24 23:11 60 mg ONCE ONE Administration Medical Decision Making [facility] Narrative Medical decision making narrative: This patient presents for evaluation of itchy burning redness on her right leg on 2 spots where she was stung by a bee yesterday. Signs and symptoms are consistent with large local reaction. No airway involvement, bronchospasm, GI symptoms, hypotension, or other sign of anaphylaxis. No other diffuse hives. Patient was treated here with medications as noted above. Differential would here would include a bacterial super infection but given that there is reactions at 2 different sites I do not think this represents 2 sites of 70s cellulitis. I suspect this is large local reaction to the bee sting. Will treat with steroids, Benadryl, ice packs, ibuprofen and NSAIDs as needed. Given lack of serious systemic symptoms, lack of respiratory difficulty and no oral or pharyngeal swelling, would not admit at this time for anaphylaxis. There is no signs of anaphylactic shock. Precautions for return to the ER reviewed Discharge Plan Discharge Clinical Impression: Bee sting Patient Disposition: Home, Self-Care Condition: Stable Instructions: Insect Bite or Sting (ED) Additional Instructions: As we discussed, we suspect that these large red areas around your bee stings are called ?large localized reactions. These are related to your immune system reacting to the insect venom. It typically take 5-10 days to resolve. To help with the itching you can continue to use antihistamine such as Zyrtec or Benadryl. You can also use an ice pack for 10-20 minutes every few hours to help reduce the itching. To help with the inflammation you can use ibuprofen 600 mg 3 times daily as needed. We will also put you on prednisone which is an anti-inflammatory. Take this once daily for the next 4 days. Prescriptions: New prednisone 20 mg tablet 60 mg PO DAILY 4 Days Qty: 12 0RF No Action spironolactone 50 mg tablet 50 mg PO DAILY clindamycin phosphate 1 % swab 1 applic topical BID Follow Up/Referrals: Provider,Not a Local [Primary Care Provider, Family Practice] Stand Alone Forms: [facility] Info Instructions
== END 2024-09-10 23:22 | disposition home or self-care (01) ==
PROVIDERS: Emergency Provider Emergency Medicine
DX: T63.441A Toxic effect of venom of bees, accidental (unintentional), initial encounter (principal); M79.89 Other specified soft tissue disorders
CPT/HCPCS: 99282; 99283; A9270; J7512